=== PATIENT | female | born 1970 | race African-American/Black ===

== ENCOUNTER 2024-10-24 15:18 | Emergency (ER) | payer OTHER, SELFPAY ==
[2024-10-24 15:20] VITALS: BP 155/90
[2024-10-24 17:21] VITALS: BMI 35.4
--- NOTE | 2024-10-24 17:27 | ED.GENMED ---
History of Present Illness
<Karla Gipson PA-C - Last Filed: 10/24/24 19:49>
General
Chief Complaint: Headache
Source: patient
Exam Limitations: none
Time Seen by Provider: 10/24/24 16:33
Nursing documentation reviewed up to this point in time: agreed with
History of Present Illness
History of Present Illness:
Patient is a 54-year-old female presenting to the emergency department with approximately 3 months of left-sided headache. She describes a dull pain in her left head with somewhat 'pulsing' component when turning her head. She describes any
radiation of pain into neck. Symptoms have been essentially constant over the past few months. She states she notices this pain daily. She denies any known trauma. She denies any tenderness of scalp. She denies any nausea, vomiting, dizziness,
lightheadedness. She has felt somewhat unsteady on her feet over the past few months, as well. She denies any photophobia or diplopia however does note that she feels her vision is generally declining in both eyes.
Patient reports a history of migraines although states this feels extremely different. No fever, chills, neck pain. No rash. Patient has not taken any medications to help alleviate the symptoms at home.
Past History
<Karla Gipson PA-C - Last Filed: 10/24/24 19:49>
Past History
ED Past Medical History: Other (Uterine fibroids. Dysfunctional uterine bleeding.)
ED Past Surgical History: Gynecological (Uterine fibroid embolization 11/13/2015)
Social History
Tobacco: Non-smoker
Alcohol: None
Personal:
Living: with family
Employment: Employed
Family History
Family History: Other (Noncontributory)
<Jorge Yanes DO - Last Filed: 10/24/24 20:07>
Past History
ED Past Medical History: Other (Uterine fibroids. Dysfunctional uterine bleeding. Rheumatoid arthritis)
Review of Systems
<Karla Gipson PA-C - Last Filed: 10/24/24 19:49>
Review of Systems
Allergies reviewed?: Yes
All Other Systems: ROS reviewed and negative except as documented in HPI and ROS
Phy Exam
<Karla Gipson PA-C - Last Filed: 10/24/24 19:49>
Physical Exam
Physical Exam:
Vitals: Hypertensive, otherwise vital signs stable. Afebrile
General: Patient is well appearing, no acute distress
Skin: Warm and dry, no rashes or lesions
Head: Normocephalic, atraumatic. No scalp tenderness or rash noted. No temporal tenderness
Eyes: Sclera nonicteric. EOMs intact. Pupils equal round and reactive to light bilaterally. No nystagmus.
Throat: Protecting airway
Neck: Normal ROM, no cervical spine tenderness, no meningismus
Cardiac: Regular rate and rhythm, no murmurs.
Pulm: Normal respiratory effort, no wheezes, rales, rhonchi heard on exam.
Abdomen: No abdominal tenderness.
Extremities: No evidence of cyanosis or edema. Palpable DP pulses.
Neuro: AAOx3. CN II-XII grossly intact on exam. No focal neurologic deficits. Motor strength and sensory intact in bilateral upper and lower extremities. Normal finger-nose.
Psychiatric: Normal affect.
Course
<Karla Gipson PA-C - Last Filed: 10/24/24 19:49>
Orders/Labs/Results
Orders:
Orders
10/24/24 16:54
CT Head W/o Iv Contrast Urgent
Comment:
Reason For Exam: left temporal headache
Acetaminophen [Tylenol] 650 mg PO NOW STA
10/24/24 17:21
CRP [C-Reactive Protein] Urgent
Complete Blood Count/With Diff Urgent
Comprehensive Metabolic Panel Urgent
ESR [Erythrocyte Sed Rate] Urgent
Abnormal Lab Results
10/24/24
17:21
Hct 36.3 L %
(37.0-47.0)
ESR 38 H mm/hour
(0-20)
Chloride 108 H mmol/L
(98-107)
Glucose 65 L mg/dl
(70-99)
C-Reactive Protein 11.80 H mg/L
(0.0-10.00)
10/24/24 17:21
10/24/24 17:21
Vital Signs
Initial and Last Documented VS:
Initial Vital Signs
Temp Pulse Resp BP Pulse Ox
98.1 F 89 20 155/90 96
10/24/24 15:20 10/24/24 15:20 10/24/24 15:20 10/24/24 15:20 10/24/24 15:20
Last Documented Vital Signs
Temp Pulse Resp BP Pulse Ox
98.6 F 66 20 139/86 99
10/24/24 17:53 10/24/24 19:00 10/24/24 17:53 10/24/24 19:00 10/24/24 19:00
<Jorge Yanes, DO - Last Filed: 10/24/24 20:07>
Orders/Labs/Results
Orders:
Orders
10/24/24 16:54
CT Head W/o Iv Contrast Urgent
Comment:
Reason For Exam: left temporal headache
Acetaminophen [Tylenol] 650 mg PO NOW STA
10/24/24 17:21
CRP [C-Reactive Protein] Urgent
Complete Blood Count/With Diff Urgent
Comprehensive Metabolic Panel Urgent
ESR [Erythrocyte Sed Rate] Urgent
Abnormal Lab Results
10/24/24
17:21
Hct 36.3 L %
(37.0-47.0)
ESR 38 H mm/hour
(0-20)
Chloride 108 H mmol/L
(98-107)
Glucose 65 L mg/dl
(70-99)
C-Reactive Protein 11.80 H mg/L
(0.0-10.00)
10/24/24 17:21
10/24/24 17:21
Vital Signs
Initial and Last Documented VS:
Initial Vital Signs
Temp Pulse Resp BP Pulse Ox
98.1 F 89 20 155/90 96
10/24/24 15:20 10/24/24 15:20 10/24/24 15:20 10/24/24 15:20 10/24/24 15:20
Last Documented Vital Signs
Temp Pulse Resp BP Pulse Ox
98.6 F 66 20 139/86 99
10/24/24 17:53 10/24/24 19:00 10/24/24 17:53 10/24/24 19:00 10/24/24 19:00
<Karla Gipson PA-C - Last Filed: 10/24/24 19:49>
MDM/Problems Addressed
Differential Diagnosis Includes:
Not limited to: Migraine headache, tension headache, temporal arteritis, sinusitis, mass, CVA, etc.
MDM/Problems Addressed:
54-year-old female with history as documented presenting with 3 months of left-sided headache. Headache not acute onset. She does note somewhat gradual worsening vision bilaterally over the past few months although no field cuts or diplopia.
Symptoms seem mildly worse with neck movement. Patient hypertensive with otherwise stable vital signs. Physical exam as above. Patient well-appearing, in no apparent distress. She has no reproducible tenderness to scalp and no temporal
tenderness bilaterally. Cardio/pulmonary assessment unremarkable. She is alert and oriented with no focal neurologic deficit on exam. Somewhat atypical pattern for headache. Low suspicion for acute emergent process given symptoms have been
ongoing for the past 3 months. However�will obtain labs, CT scan, inflammatory markers. Will give Tylenol.
Update: CT head without any acute abnormalities. Labs reviewed. She does have mild elevation in ESR and CRP. This may be secondary to her history of rheumatoid arthritis. Very low suspicion for temporal arteritis today as she has no tenderness
in the area and symptoms are bilateral. No rash or scalp tenderness to suggest zoster or occipital neuralgia. Unknown etiology of headache although low suspicion for acute intracranial emergent process given duration of symptoms and negative
workup in ED. Feel patient stable for discharge home with NSAIDs, primary care follow-up. Advised MRI brain if symptoms persist/worsen. Patient comfortable with plan.
Chronic conditions affecting care:
Migraines
Acute Exacerbation and/or Progression of Chronic Illness:
N/A
<Karla Gipson PA-C - Last Filed: 10/24/24 19:49>
*Radiology
Radiology exam reviewed: preliminary read by ED provider (Head CT reviewed by pr-no acute intracranial abnormality) and radiology read reviewed
*Pulse Oximetry
Patient hypoxic: no
*EKG
Interpreted by ED Provider?: NA
*Ledge Man Interpretation
Rate: Ledge Man- N/A
*Critical Care Note
Total Time (30-74mins, 75-104mins- exclusive of procedures): Not Applicable
ED Attending Note
<Karla Gipson PA-C - Last Filed: 10/24/24 19:49>
-
Portions of this chart may have been created with voice recognition software.� Occasional wrong word or��sound alike� substitutions may have occurred due to the inherent limitations of voice recognition software.
<Jorge Yanes DO - Last Filed: 10/24/24 20:07>
ED Attending Note
Patient seen and examined by attending physician: Yes
I performed the substantive portion of visit, reviewed & personally made and approve the management plan that is documented in note by myself or MARYJO.: Yes
ED Attending Note:
54-year-old female who arrives with a headache. Headache has been ongoing for some months. Patient states she was just putting it off and wanted to get evaluated. Headache is mostly in the posterior aspect of the head and the posterior parietal
area. She notes it mostly when she rotates her head to the left. She does report that she had seen ophthalmology and was told that she had retinal changes. She states that the vision changes do not seem to be correlated to the headache. She
states she has occasional where she checks her vision. No fevers. No vomiting. No neck pain. Exam: Temporal arteries are nontender. No neck pain or tenderness on exam. Nonfocal neurologic assessment. Assessment plan: Question of this is
musculoskeletal like the fact that is worse with head rotation. Recommended NSAIDs. Inflammatory markers noted but patient does have a history of RA. She is not on any medications for well-appearing and can follow-up as outpatient
Discharge Plan
Departure
Patient Disposition: Home (Routine Discharge)
Date of Disposition: 10/24/24
Time of Disposition: 19:01
Patient with high blood pressure during this ER visit?: Yes
Condition: Good
Covid-19: Not Applicable
Discharge Problem:
Headache
Instructions: Headache, Adult (DC), BLOOD PRESSURE
Prescriptions:
No Action
Imitrex
500 mg PO PRN PRN (Reason: allergies)
Iro-Plex Caplet
1 tab PO DAILY
Motrin
800 mg PO PRN PRN (Reason: cramps)
Xanax:
0.5 mg PO PRN PRN (Reason: anxiety)
Referrals:
Lisa Wright DO [Family Provider] - Follow up in 1 week
Activity Restrictions/Additional Instructions:
RETURN TO THE EMERGENCY DEPARTMENT ANY SEVERE HEADACHE, NECK PAIN, HIGH FEVERS, DIZZINESS, CHANGES IN VISION, DIFFICULTY WITH BALANCE, WORSENING OF CURRENT SYMPTOMS, OR ANY OTHER CONCERNS
- As discussed�your inflammatory markers were mildly elevated while in the emergency department. Your head CT showed no acute abnormalities. You were given Tylenol.
-Stay well-hydrated. You can take Motrin as needed for pain.
- We are unsure the exact cause of headache. If symptoms persist you may require an outpatient MRI. Please follow close with your primary care.
Monitor your symptoms closely and return to the emergency department with any acute worsening/new symptoms or any other concerns
Interventions
Interventions:
*Risk Screen - Suicide Last Done: 10/24/24 17:53
*General Assessment Last Done: 10/24/24 15:20
*Neglect/Abuse Screening Last Done: 10/24/24 17:53
*ED- Fall Risk Assessment Last Done: 10/24/24 17:53
*ED COVID-19 Vaccine History Last Done: 10/24/24 17:53
*Nursing Disposition Last Done: 10/24/24 19:11
ED- Neurological Assessment Last Done: 10/24/24 17:53
Discharge Date and Time
Discharge Date/Time: 10/24/24 19:13
Print Language: BANGLADESHI
[2024-10-24] MEDS: TYLENOL 650 MG PO (17:28)
[2024-10-24 17:35] LABS: % Basophils 0.5 % (0-2); % Eosinophils 3.5 % (0-6); % Immature Granulocytes 0.3 % (0-0.5); % Lymphocytes 38.6 % (20.5-51.1); % Monocytes 6.7 % (1.7-9.3); % Neutrophils 50.4 % (42.2-75.2); Absolute Eosinophils 0.3 10^3/uL (0-0.7); Absolute Monocytes 0.5 10^3/uL (0.1-0.6); Absolute Neutrophils 3.9 10^3/uL (1.4-6.5); Hematocrit 36.3 % (37.0-47.0); Mean Corp Hgb Conc. 33.1 g/dL (33.0-37.0); Mean Corpuscular Hgb 27.8 pg (27.0-31.0); Mean Platelet Volume 9.9 fL (7.4-10.4); Nucleated Red Blood Cells % 0 %; Platelet Count 238 10^3/uL (130-400); Red Blood Cell Count 4.32 10^6/uL (4.20-5.40); White Blood Cell Count 7.6 10^3/uL (4.8-10.8)
[2024-10-24 17:53] VITALS: BP 130/90
[2024-10-24 17:56] LABS: ALT (SGPT) 27 U/L (0-35); AST (SGOT) 25 U/L (14-36); Albumin 4.1 g/dl (3.5-5.0); Alkaline Phosphatase 72 U/L (38-126); Blood Urea Nitrogen 9 mg/dl (7-17); Calcium 10.1 mg/dl (8.4-10.2); Carbon Dioxide 28 mmol/L (22-30); Chloride 108 mmol/L (98-107); Estimated Creatinine Clearance 91 ml/min; Glucose 65 mg/dl (70-99); Potassium 4.2 mmol/L (3.5-5.1); Sodium 145 mmol/L (135-145); Total Bilirubin 0.5 mg/dl (0.2-1.3); Total Protein 7.5 g/dl (6.3-8.2); eGFR > 60.00
[2024-10-24 18:01] LABS: Erythrocyte Sed Rate 38 mm/hour (0-20)
[2024-10-24 19:00] VITALS: BP 139/86
== END 2024-10-24 19:13 | disposition home or self-care (01) ==
LOC: EMR 15:18
PROVIDERS: Physician Assistant; EMERGENCY PHYSICIAN Emergency Medicine; FAMILY PHYSICIAN Family Medicine
DX: R51.9 Headache, unspecified (principal); M06.9 Rheumatoid arthritis, unspecified
CPT/HCPCS: 99284; 70450; 80053; 85025; 85652; 86140

== ENCOUNTER → 2024-11-05 14:24 | Outpatient (REF) | payer OTHER, SELFPAY | LOC: HWWDC 14:24 | PROVIDERS: ATTENDING PHYSICIAN Obstetrics & Gynecology Gynecology; FAMILY PHYSICIAN Family Medicine | DX: Z12.31 Encounter for screening mammogram for malignant neoplasm of breast (principal) | CPT/HCPCS: 77063; 77067 ==

== ENCOUNTER → 2024-12-12 14:06 | Outpatient (REF) | payer OTHER, SELFPAY | LOC: PAVMRI 14:06 | PROVIDERS: ATTENDING PHYSICIAN Obstetrics & Gynecology Gynecology; FAMILY PHYSICIAN Family Medicine | DX: N95.0 Postmenopausal bleeding (principal); D21.9 Benign neoplasm of connective and other soft tissue, unspecified | CPT/HCPCS: 72197; A9575 ==

== ENCOUNTER 2024-12-30 03:04 | Emergency (ER) | payer OTHER, SELFPAY ==
[2024-12-30 03:11] VITALS: BP 135/88
[2024-12-30 03:38] LABS: Hematocrit 35.0 % (37.0-47.0); Hemoglobin 11.7 g/dL (12.0-16.0); Mean Corp Hgb Conc. 33.4 g/dL (33.0-37.0); Mean Corpuscular Volume 82.9 fL (81.0-99.0); Nucleated Red Blood Cells % 0 %; Platelet Count 232 10^3/uL (130-400); Red Cell Dist. Width 13.7 % (11.5-14.5)
[2024-12-30 04:04] LABS: ALT (SGPT) 28 U/L (0-35); AST (SGOT) 24 U/L (14-36); Albumin 4.6 g/dl (3.5-5.0); Alkaline Phosphatase 89 U/L (38-126); Blood Urea Nitrogen 16 mg/dl (7-17); Calcium 10.1 mg/dl (8.4-10.2); Carbon Dioxide 23 mmol/L (22-30); Chloride 107 mmol/L (98-107); Glucose 155 mg/dl (70-99); Potassium 4.0 mmol/L (3.5-5.1); Sodium 139 mmol/L (135-145); Total Protein 7.9 g/dl (6.3-8.2); eGFR > 60.00
[2024-12-30 04:13] LABS: Troponin I < 0.012 ng/ml
[2024-12-30 07:01] VITALS: BP 143/87
[2024-12-30 07:05] VITALS: BP 143/87; BMI 35.6
--- NOTE | 2024-12-30 07:37 | ED.GENMED ---
History of Present Illness
General
Chief Complaint: Extremity Pain (non-traumatic)
Time Seen by Provider: 12/30/24 07:17
History of Present Illness
History of Present Illness:
54-year-old female presents the emergency department for evaluation of left volar hand pain has been ongoing for the past 2 days, occasionally radiating up the forearm. Denies any trauma. Pain does not feel comparable to her prior history of
carpal tunnel. No fevers or chills. Denies chest pain or shortness of breath.
Past History
Past History
ED Past Medical History: Other (Uterine fibroids. Dysfunctional uterine bleeding. Rheumatoid arthritis)
ED Past Surgical History: Gynecological (Uterine fibroid embolization 11/13/2015)
Social History
Tobacco: Non-smoker
Alcohol: None
Personal:
Living: with family
Employment: Employed
Family History
Family History: Other (Noncontributory)
Review of Systems
Review of Systems
Allergies reviewed?: Yes
All Other Systems: ROS reviewed and negative except as documented in HPI and ROS
Phy Exam
Physical Exam
Physical Exam:
GEN: Well appearing, NAD, WDWN
HEENT: Oral mucosa moist, no scleral icterus
Cardiac: Regular rate
Lung: No respiratory distress, no tachypnea
MSK: No gross deformity or injuries. Mild swelling noted to the thenar eminence of the left hand, no erythema or edema otherwise. Handgrip is weak most likely due to pain response, digital sensation intact x 5. Radial pulse is strong. No pain
with passive flexion or extension at the wrist, no wrist effusion
Skin: Good color, no pallor or jaundice, no rashes
Neuro: AO x3, moves all extremities freely
Psych: Calm, cooperative
Course
Orders/Labs/Results
Orders:
Orders
12/30/24 03:15
Electrocardiogram (*1) Urgent
Reason for Study: Other
Other Reason for Exam: L arm pain
12/30/24 03:16
EKG- Treatment ONCE
12/30/24 03:28
Complete Blood Count/With Diff Urgent
Comprehensive Metabolic Panel Urgent
Troponin I Urgent
12/30/24 07:37
Ketorolac [Toradol] 30 mg IM NOW STA
CR Hand - Left Min 3 Views Urgent
Comment:
Reason For Exam: non traumatic pain
Abnormal Lab Results
12/30/24
03:28
Hgb 11.7 L g/dL
(12.0-16.0)
Hct 35.0 L %
(37.0-47.0)
Glucose 155 H mg/dl
(70-99)
12/30/24 03:28
12/30/24 03:28
Vital Signs
Initial and Last Documented VS:
Initial Vital Signs
Temp Pulse Resp BP Pulse Ox
98.0 F 75 20 135/88 98
12/30/24 03:11 12/30/24 03:11 12/30/24 03:11 12/30/24 03:11 12/30/24 03:11
Last Documented Vital Signs
Temp Pulse Resp BP Pulse Ox
97.5 F 66 20 143/87 100
12/30/24 07:05 12/30/24 07:05 12/30/24 07:05 12/30/24 07:05 12/30/24 07:39
MDM/Problems Addressed
MDM/Problems Addressed:
Unclear etiology to the patient's hand pain, no erythema or skin changes suggestive of infectious etiology. Her weakness appears to be secondary to pain, or certainly could be related to her carpal tunnel, we will trial a course of NSAIDs and
recommend outpatient Ortho and/or primary care follow-up
*Pulse Oximetry
SaO2: 100
Oxygen Mode of Delivery: Room air
Patient hypoxic: no
*Critical Care Note
Total Time (30-74mins, 75-104mins- exclusive of procedures): Not Applicable
ED Attending Note
-
Portions of this chart may have been created with voice recognition software.� Occasional wrong word or��sound alike� substitutions may have occurred due to the inherent limitations of voice recognition software.
Discharge Plan
Departure
Patient Disposition: Home (Routine Discharge)
Date of Disposition: 12/30/24
Time of Disposition: 08:57
Patient with high blood pressure during this ER visit?: No
Discharge Problem:
Hand pain, left
Instructions: Muscle and Bone Pain (DC)
Prescriptions:
New
diclofenac sodium 75 mg tablet,delayed release (DR/EC)
75 mg PO BID PRN (Reason: Pain) Qty: 20 0RF
No Action
Imitrex
500 mg PO PRN PRN (Reason: allergies)
Iro-Plex Caplet
1 tab PO DAILY
Motrin
800 mg PO PRN PRN (Reason: cramps)
Xanax:
0.5 mg PO PRN PRN (Reason: anxiety)
Referrals:
Lisa Wright DO [Family Provider, Family Practice]
Interventions
Interventions:
*Risk Screen - Suicide Last Done: 12/30/24 03:11
*General Assessment Last Done: 12/30/24 07:35
*Neglect/Abuse Screening Last Done: 12/30/24 03:11
*ED- Fall Risk Assessment Last Done: 12/30/24 07:35
*ED COVID-19 Vaccine History Last Done: 12/30/24 07:35
*Nursing Disposition Last Done: 12/30/24 09:03
ED-Skin Assessment Last Done: 12/30/24 07:35
ED-Peripheral Vascular Assessment Last Done: 12/30/24 07:35
ED-Musculoskeletal Assessment Last Done: 12/30/24 07:35
Discharge Date and Time
Discharge Date/Time: 12/30/24 09:04
Print Language: GREEK
[2024-12-30] MEDS: TORADOL 30 MG IM (08:36)
== END 2024-12-30 09:04 | disposition home or self-care (01) ==
LOC: EMR 03:04
PROVIDERS: Emergency Medicine; EMERGENCY PHYSICIAN Emergency Medicine; FAMILY PHYSICIAN Family Medicine
DX: M79.642 Pain in left hand (principal); M25.442 Effusion, left hand; M79.602 Pain in left arm; M06.9 Rheumatoid arthritis, unspecified
CPT/HCPCS: 99284; 96372; 73130; 80053; 84484; 85025; 93005